=== PATIENT | male | born 1980 | race Two or more races ===

== ENCOUNTER 2025-06-16 06:29 | Inpatient (IN) | payer MEDICAID, OTHER ==
[~2025-06-16] VITALS: Ht 182.9 cm; Wt 92.0 kg
[2025-06-16 06:29] VITALS: TEMP 97.8
--- NOTE | 2025-06-16 07:10 | ED.PDOC ---
HPI Comments This is a 45 year-old male, with a Hx of IL and Stents, who presents to the ED with a chief complaint of L sided chest pain as of yesterday. Patient reports additional symptoms of emesis daily, but reports this is an ongoing issue. Patient has a social history of smoking cigarettes and MJ abuse. Patient has no further complaints at this time and otherwise denies palpitations, dizziness, cough, congestion, fever, or chills. Chief Complaint: Chest Pain Time Seen by MD: 06:47 Reviewed Notes: Medications, Allergies Information Source: Patient Mode of Arrival: Ambulatory Severity: Moderate Timing: Hours Duration: Since onset Location: Chest (L) Radiation: No Radiation Onset: At Rest, With Light Exertion Past Medical History PAST MEDICAL HISTORY: IL Surgical History: Denies all surgeries Family History Family History: Reviewed,noncontributory to illness, No family hx of Cancer, No family hx of DM, No family hx of Heart yoko, No family hx of HTN, No family hx ofKidney yoko, No family hx of Liver yoko, No family hx of Lung yoko, No family hx of Stroke Social History Smoker: Cigarettes Alcohol: Denies ETOH Use Drugs: Marijuana Constitutional: denies: chills, diaphoresis, fatigue, fever, malaise, sweats, weakness, others EENTM: denies: blurred vision, double vision, ear bleeding, ear discharge, ear drainage, ear pain, ear ringing, eye pain, eye redness, hearing loss, mouth pain, mouth swelling, nasal discharge, nose bleeding, nose congestion, nose pain, photophobia, tearing, throat pain, throat swelling, voice changes, others Respiratory: denies: cough, hemoptysis, orthopnea, SOB at rest, shortness of breath, SOB with excertion, stridor, wheezing, others Cardiovascular: reports: chest pain; denies: dizzy spells, diaphoresis, Dyspnea on exertion, edema, irregular heart beat, left arm pain, lightheadedness, palpitations, PND, syncope, others Gastrointestinal: denies: abdomen distended, abdominal pain, blood streaked bowels, constipated, diarrhea, dysphagia, difficulty swallowing, hematemesis, melena, nausea, poor appetite, poor fluid intake, rectal bleeding, rectal pain, vomiting, others Genitourinary: denies: burning, dysuria, flank pain, frequency, hematuria, incontinence, penile discharge, penile sore, pain, testicle pain, testicle swelling, urgency, others Neurological: denies: dizziness, fainting, headache, left sided numbness, left sided weakness, numbness, paresthesia, pre-existing deficit, right sided numbness, right sided weakness, seizure, speech problems, tingling, tremors, weakness, others Musculoskeletal: denies: back pain, gout, joint pain, joint swelling, muscle pain, muscle stiffness, neck pain, others Integumetry: denies: bruises, change in color, change in hair/nails, dryness, laceration, lesions, lumps, rash, wounds, others Allergic/Immunocompromised: denies: Difficulty Healing, Frequent Infections, Hives, Itching, others Hematologic/Lymphatic: denies: anemia, blood clots, easy bleeding, easy bruising, swollen glands, others Endocrine: denies: excessive hunger, excessive sweating, excessive thirst, excessive urination, flushing, intolerance to cold, intolerance to heat, unexplained weight gain, unexplained weight loss, others Psychiatric: denies: anxiety, bipolar disorder, depression, hopeless, panic disorder, schizophrenia, sleepless, suicidal, others All Other Systems: Reviewed and Negative Physical Exam General Appearance: Moderate Distress HEENT: Normal ENT Inspection, Pharynx Normal, TMs Normal Neck: Full Range of Motion, Non-Tender, Normal, Normal Inspection Respiratory: Chest Non-Tender, Lungs Clear, No Accessory Muscle Use, No Respiratory Distress, Normal Breath Sounds Cardiovascular: No Edema, No JVD, No Murmur, No Gallop, Normal Peripheral Pulses, Regular Rate/Rhythm Breast Exam: Deferred Gastrointestinal: No Organomegaly, Non Tender, No Pulsatile Mass, Normal Bowel Sounds, Soft Genitalia: Deferred Pelvic: Deferred Rectal: Deferred Extremities: No calf tenderness, Normal capillary refill, Normal inspection, Normal range of motion, Non-tender, No pedal edema Musculoskeletal : Apperance: Normal 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 Was a procedure done?: No CP Differential Dx Differential Diagnosis: A-fib, A-Flutter, Angina, Anxiety / Panic Attack, Atrial Dysrhythmia, Electrolyte Disorder, IL, Sinus Tachycardia Differential Diagnosis: CHF, HTN Essential Differential Diagnosis: Angina, Chest Wall Pain X-Ray, Labs, Meds, VS Vital Signs Date Time Temp Pulse Resp B/P (MAP) Pulse Ox O2 Delivery O2 Flow Rate FiO2 06/16/25 07:41 96 06/16/25 07:10 101 06/16/25 06:29 97.8 80 20 154/78 97 97.8 Lab Test 06/16/25 08:05 06/16/25 07:04 Range/Units Troponin I High Sensitivity Pending 37 </=54 ng/L White Blood Count 10.4 4.4-10.8 10^3/uL Red Blood Count 4.02 L 4.5-5.90 10^6/uL Hemoglobin 11.8 L 13.5-17.5 g/dL Hematocrit 35.1 L 41.0-53.0 % Mean Corpuscular Volume 87.4 80.0-100.0 fL Mean Corpuscular Hemoglobin 29.5 28.0-32.0 pg Mean Corpuscular Hemoglobin Concent 33.7 32.0-36.0 g/dL Red Cell Distribution Width 13.1 11.8-14.3 % Platelet Count 305 140-450 10^3/uL Mean Platelet Volume 8.4 6.9-10.8 fL Neutrophils (%) (Auto) 69.4 37.0-80.0 % Lymphocytes (%) (Auto) 21.2 10.0-50.0 % Monocytes (%) (Auto) 6.3 0.0-12.0 % Eosinophils (%) (Auto) 2.7 0.0-7.0 % Basophils (%) (Auto) 0.4 0.0-2.0 % Neutrophils # (Auto) 7.2 1.6-8.6 10 ^3/uL Lymphocytes # (Auto) 2.2 0.4-5.4 10 ^3/uL Monocytes # (Auto) 0.6 0-1.3 10 ^3/uL Eosinophils # (Auto) 0.3 0-0.8 10 ^3/uL Basophils # (Auto) 0 0-0.2 10 ^3/uL Nucleated Red Blood Cells 0.0 % Sodium Level 136 136-145 mmol/L Potassium Level 4.0 3.5-5.1 mmol/L Chloride Level 101 98-107 mmol/L Carbon Dioxide Level 27 20-31 mmol/L Anion Gap 8 5-15 Blood Urea Nitrogen 22 9-23 mg/dL Creatinine 3.33 H 0.700-1.30 mg/dL Glomerular Filtration Rate Calc 22 >90 mL/min BUN/Creatinine Ratio 6.6 L 10.0-20.0 Serum Glucose 184 H 74-106 mg/dL Calcium Level 8.9 8.7-10.4 mg/dL [place] [id number] Ph: [phone] DIAGNOSTIC IMAGING Diagnostic Imaging Report : [id number] Signed PATIENT: MONIE MERIDAOACCT: [id number] UNIT: [id number] : 1980 LOC: ER ROOM / BED: / AGE / SEX: 45 / M ADM STATUS: REG ER SERVICE [id number] ORDERING PHYSICIAN: RK CHOPRA MD PROCEDURE(s): CXRP - CHEST PORTABLE REASON: sob ORDER NUMBER(s): [id number], ACCESSION NUMBER(s): [id number] CHEST RADIOGRAPH Indication: sob Technique: Single frontal view of the chest was obtained Comparison: None FINDINGS: Lines and Tubes: None Lungs: No focal consolidation. Pleura: No effusion. No pneumothorax. Cardiomediastinal contours: Unremarkable Bones: No acute osseous abnormality. IMPRESSION: 1. No acute cardiopulmonary disease. Patient alert. Came in because of chest pain. Vitals stable. Answering all questions. EKG reviewed does not show any acute changes. Was given aspirin. Explained to the patient. Continue monitoring. Images Reviewed?: Images reviewed and evaluated by me Time of 1ST Reevaluation: 07:33 Reevaluation 1ST: Unchanged Patient Education/Counseling: Diagnosis, Treatment Family Education/Counseling: No Family Present SEPSIS Sepsis Screen Date sepsis recognized/suspect: Jun 16, 2025 Time Sepsis recognized/suspect: 0701 Recent Procedure: No On Antibiotic Therapy: No Respiratory Rate >20: No Heart Rate >90: No Temp<36 C (96.8 F) or >38.3 C: No SBP <90 or MAP <65 mmHG: No New Acute Mental Status Change: No Is the patient on CPAP, BIPAP,: No Physician Orders Chest Portable (06/16/25 06:41) Troponin-I Hs (06/16/25 07:41) Troponin-I Hs (06/16/25 09:41) Electrocardigram (06/16/25 07:52) Electrocardigram (06/16/25 08:52) Electrocardigram (06/16/25 10:52) Vital Signs Date Time Temp Pulse Resp B/P (MAP) Pulse Ox O2 Delivery O2 Flow Rate FiO2 06/16/25 07:41 96 06/16/25 07:10 101 06/16/25 06:29 97.8 80 20 154/78 97 97.8 Laboratory Tests Test 06/16/25 07:04 White Blood Count 10.4 10^3/uL (4.4-10.8) Departure 1 Departure Time of Disposition: 08:20 Impression: Primary Impression: Chest pain of unknown etiology Disposition: ADMITTED INPATIENT Admit to: Med Surg Condition: Guarded Critical Care Note Critical Care Time?: Yes (90 min-critical care time only) Stability Stability form required: No Heart Score Heart Score: Heart Score Response (Comments) Value History Moderate Suspicious 1 EKG Normal 0 Age 45-64 1 Risk Factors 1 or 2 risk factors 1 Troponin Normal limit 0 Total 3 I personally scribed for RK CHOPRA MD ([email or web address]) on 06/16/25 at 07:10. Electronically submitted by Lorin Monroe ([employer]). I personally scribed for RK CHOPRA MD ([email or web address]) on 06/16/25 at 07:32. Electronically submitted by Lorin Monroe ([employer]). RK CHOPRA MD Jun 16, 2025 07:10
--- NOTE | 2025-06-16 07:17 | DVH ---
CHEST RADIOGRAPH Indication: sob Technique: Single frontal view of the chest was obtained Comparison: None FINDINGS: Lines and Tubes: None Lungs: No focal consolidation. Pleura: No effusion. No pneumothorax. Cardiomediastinal contours: Unremarkable Bones: No acute osseous abnormality. IMPRESSION: 1. No acute cardiopulmonary disease.
[2025-06-16 07:31] LABS: Hematocrit 35.1 % (41.0-53.0); Hemoglobin 11.8 g/dL (13.5-17.5); Mean Corpuscular Hemoglobin 29.5 pg (28.0-32.0); Mean Corpuscular Volume 87.4 fL (80.0-100.0); Nucleated Red Blood Cells % 0.0 %
[2025-06-16 07:44] LABS: Chloride 101 mmol/L (98-107); Potassium 4.0 mmol/L (3.5-5.1)
[2025-06-16 07:45] LABS: Anion Gap 8 (5-15); Carbon Dioxide 27 mmol/L (20-31)
[2025-06-16 07:46] LABS: Calcium 8.9 mg/dL (8.7-10.4)
[2025-06-16 07:47] LABS: Sodium 136 mmol/L (136-145)
[2025-06-16 07:51] LABS: BUN/Creatinine Ratio 6.6 (10.0-20.0); Blood Urea Nitrogen 22 mg/dL (9-23)
[2025-06-16 07:53] LABS: Glucose 184 mg/dL (74-106)
[2025-06-16 08:21] VITALS: BP 151/93; PULSE 91; RESP 18; O2SAT 99
--- NOTE | 2025-06-16 09:28 | DVHHP2 ---
History of Present Illness Reason for Visit: Chest pain History of Present Illness Anatoly Solano is a 45-year-old male with past medical history of OH status post stent x1 at [facility] in December of 2024, right transmetatarsal amputation, CKD, and perianal surgery who presents to the ED with chest pain that began yesterday at 6:00 p.m. patient reports that the pain was 6/10 pressure-like and intermittent in nature. He reports that he is compliant with his medications. Patient reports that he recently moved from [facility] to [place] and reports that he has established care at [facility]. Patient reports that he smokes marijuana. Patient denies any recent trauma or injury, recent sick contacts, recent travels, recent ingestion of spoiled food, shortness of breath, fever, chills, lightheadedness, weakness, dizziness, abdominal pain, nausea, vomiting, diarrhea, or urinary symptoms. Cardiovascular: OH Past Surgical History: Other (PTCA x1, right transmetatarsal amputation, and perianal surgery) Family History: Cancer, DM, Other (Mom with diabetes, heart disease, and pancreatic cancer. Dad with diabetes, heart disease, and stomach cancer.) Smoke: No ALCOHOL: none Drugs: Marijuana Lives: with Family Domestic Violence: Neg Review of Systems Cardiovascular: Chest Pain Allergies: Coded Allergies: NO KNOWN ALLERGIES (Unverified , 06/16/25) Exam Vital Signs Vital Signs Date Time Temp Pulse Resp B/P (MAP) Pulse Ox O2 Delivery O2 Flow Rate FiO2 06/16/25 08:21 91 18 151/93 (112) 99 06/16/25 08:21 Room Air 06/16/25 06:29 97.8 97.8 General Appearance: Alert, Oriented X3, Cooperative, No acute distress HEENT: Atraumatic, PERRLA, EOMI, Mucous membr. moist/pink Respiratory: Clear to auscultation, Normal air movement Cardiovascular: Regular rate, Normal S1, Normal S2, No murmurs Abdominal: Normal bowel sounds, Soft Neuro: Normal gait, Normal speech, Strength at 5/5 X4 ext, Normal tone, Sensation intact Psych/Mental Status: Mental status NL, Mood NL Labs/Xrays Labs Test 06/16/25 08:05 06/16/25 07:04 Range/Units Troponin I High Sensitivity 34 </=54 ng/L White Blood Count 10.4 4.4-10.8 10^3/uL Red Blood Count 4.02 L 4.5-5.90 10^6/uL Hemoglobin 11.8 L 13.5-17.5 g/dL Hematocrit 35.1 L 41.0-53.0 % Mean Corpuscular Volume 87.4 80.0-100.0 fL Mean Corpuscular Hemoglobin 29.5 28.0-32.0 pg Mean Corpuscular Hemoglobin Concent 33.7 32.0-36.0 g/dL Red Cell Distribution Width 13.1 11.8-14.3 % Platelet Count 305 140-450 10^3/uL Mean Platelet Volume 8.4 6.9-10.8 fL Neutrophils (%) (Auto) 69.4 37.0-80.0 % Lymphocytes (%) (Auto) 21.2 10.0-50.0 % Monocytes (%) (Auto) 6.3 0.0-12.0 % Eosinophils (%) (Auto) 2.7 0.0-7.0 % Basophils (%) (Auto) 0.4 0.0-2.0 % Neutrophils # (Auto) 7.2 1.6-8.6 10 ^3/uL Lymphocytes # (Auto) 2.2 0.4-5.4 10 ^3/uL Monocytes # (Auto) 0.6 0-1.3 10 ^3/uL Eosinophils # (Auto) 0.3 0-0.8 10 ^3/uL Basophils # (Auto) 0 0-0.2 10 ^3/uL Nucleated Red Blood Cells 0.0 % Sodium Level 136 136-145 mmol/L Potassium Level 4.0 3.5-5.1 mmol/L Chloride Level 101 98-107 mmol/L Carbon Dioxide Level 27 20-31 mmol/L Anion Gap 8 5-15 Blood Urea Nitrogen 22 9-23 mg/dL Creatinine 3.33 H 0.700-1.30 mg/dL Glomerular Filtration Rate Calc 22 >90 mL/min BUN/Creatinine Ratio 6.6 L 10.0-20.0 Serum Glucose 184 H 74-106 mg/dL Calcium Level 8.9 8.7-10.4 mg/dL CHEST RADIOGRAPH Indication: sob Technique: Single frontal view of the chest was obtained Comparison: None FINDINGS: Lines and Tubes: None Lungs: No focal consolidation. Pleura: No effusion. No pneumothorax. Cardiomediastinal contours: Unremarkable Bones: No acute osseous abnormality. IMPRESSION: 1. No acute cardiopulmonary disease. SEPSIS Sepsis Screen Date sepsis recognized/suspect: Jun 16, 2025 Time Sepsis recognized/suspect: 07 Recent Procedure: No On Antibiotic Therapy: No Respiratory Rate >20: No Heart Rate >90: No Temp<36 C (96.8 F) or >38.3 C: No SBP <90 or MAP <65 mmHG: No New Acute Mental Status Change: No Is the patient on CPAP, BIPAP,: No Physician Orders Chest Portable (06/16/25 06:41) Troponin-I Hs (06/16/25 09:41) Electrocardigram (06/16/25 07:52) Electrocardigram (06/16/25 08:52) Electrocardigram (06/16/25 10:52) Vital Signs Date Time Temp Pulse Resp B/P (MAP) Pulse Ox O2 Delivery O2 Flow Rate FiO2 06/16/25 08:21 91 18 151/93 (112) 99 06/16/25 08:21 91 18 99 Room Air 06/16/25 07:41 96 06/16/25 07:10 101 06/16/25 06:29 97.8 80 20 154/78 97 97.8 Laboratory Tests Test 06/16/25 07:04 White Blood Count 10.4 10^3/uL (4.4-10.8) Medications Medications Dose Ordered Sig/Laura Route Start Time Stop Time Status Last Admin Dose Admin Aspirin 325 mg ONCE ONCE PO 06/16/25 08:30 06/16/25 08:31 DC 06/16/25 08:32 325 MG Assessment/Plan Assessment/Plan Assessment Chest pain rule out ACS, likely due to polysubstance use Tobacco use Marijuana use Hyperglycemia History of CKD History of OH status post PTCA x1 at [facility] in December of 2024 History of right transmetatarsal amputation History of perianal surgery Plan Admit to tele Antiemetics Pain management Echo ordered ACS workup Hemoglobin A1c ISS and Accu-Cheks EKG Troponin Chest x-ray Diet Home medications reconciled DVT prophylaxis-patient on Brilinta PUD prophylaxis-not indicated no history of GERD or GI bleed Discussed plan of care with patient and nurse Nephro consulted Consider Cardiology consult Counseled patient on cessation of tobacco and marijuana use [id number] Behavior change smoking greater than 10 minutes about use of other options also gave option of nicotine patch [id number] Preventive counseling healthy eating habits, physical activity, and regular checkups Plan discussed with: Patient Date of Service: Jun 16, 2025 Billing Provider: PIO ALEMAN Common Visit Codes: [id number] INP/OBS CARE (HIGH) Secondary Visit Codes: 70987-XCFNT CHNG SMOKING >10MIN PIO ALEMAN Jun 16, 2025 09:28
[2025-06-16] MEDS ORDERED: MORPHINE SULFATE INJ 2 MG/ml SYRG IV PRN (09:30)
[2025-06-16] MEDS ORDERED: ACETAMINOPHEN 325 MG TAB PO PRN (09:30)
[2025-06-16] MEDS ORDERED: MORPHINE SULFATE 4 MG/ML SYR/VIAL IV PRN (09:30)
[2025-06-16] MEDS ORDERED: DEXTROSE (50%) 50ML SYRG IV PRN (09:30)
[2025-06-16] MEDS ORDERED: NITROGLYCERIN 0.4 MG SL TAB SL PRN ×2 (09:30)
[2025-06-16] MEDS ORDERED: ONDANSETRON HCL 4 MG/2 ML VIAL IV PRN (09:30)
[2025-06-16] MEDS ORDERED: InsuLIN REG 1unit/0.01ml Soln (100units/ml) SC SCH (11:30)
[2025-06-16] MEDS ORDERED: ACCU-CHEK COMFORT CURVE STRIP VI SCH (11:30)
--- NOTE | 2025-06-16 18:09 | ECG ---
[facility] Test Date: 2025-06-16 Test Time: 07:41:58 Pat Name: JOVANNY MERIDA Department: Room: [address] [place] [address] A Gender: M Radiopharmacist: JACOB : 1980 Requested By: RK CHOPRA Order Number: [id number] Reading MD: Smooth Wright Measurements Intervals Ramer Rate: 96 P: 65 CT: 162 QRS: -17 QRSD: 96 T: 101 QT: 336 QTc: 425 Interpretive Statements Sinus rhythm Consider right atrial enlargement Probable inferior infarct, old Anterior infarct, old Lateral leads are also involved Baseline wander in lead(s) V4 Electronically Signed On 06-19-2025 14:56:53 PDT by Smooth Wright Please click the below link to view image of tracing.
--- NOTE | 2025-06-16 18:09 | ECG ---
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
[2025-06-16] MEDS ORDERED: ATORVASTATIN 20 MG TAB PO SCH (22:00)
[2025-06-16] MEDS ORDERED: TICAGRELOR 90 MG TAB PO SCH (22:00)
[2025-06-16] MEDS ORDERED: CARVEDILOL 3.125 MG TAB PO SCH (22:00)
== END 2025-06-16 10:45 | disposition left against medical advice (07) | DRG 198 ==
LOC: ER 06:29 → OVERFLOW 09:19
DX: I24.9 Acute ischemic heart disease, unspecified (principal); F12.90 Cannabis use, unspecified, uncomplicated; R73.9 Hyperglycemia, unspecified; F17.210 Nicotine dependence, cigarettes, uncomplicated; N18.9 Chronic kidney disease, unspecified; I25.2 Old myocardial infarction; Z98.61 Coronary angioplasty status; Z83.3 Family history of diabetes mellitus; Z82.49 Family history of ischemic heart disease and other diseases of the circulatory system; Z80.0 Family history of malignant neoplasm of digestive organs; Z89.431 Acquired absence of right foot; F19.10 Other psychoactive substance abuse, uncomplicated
CPT/HCPCS: 36415; 71045; 80048; 83036; 84439; 84443; 84484; 85025; 93005; 99291; 99292; G0378